=== PATIENT | male | born 1960 | race African-American/Black ===

== ENCOUNTER 2016-09-04 08:17 | Inpatient (IN) ==
[2016-09-04] MEDS ORDERED: ASPIRIN PO STA (10:11)
[2016-09-04] MEDS ORDERED: NITROGLYCERIN TOP ONE (10:13)
[2016-09-04 10:22] LABS: MANUAL DIFF NEEDED? NO
[2016-09-04 10:26] LABS: BASO% 0.3 % (0.0-0.8); EOS# 0.01 X1000 (0.0-0.7); EOS% 0.1 % (0.0-10.0); HEMATOCRIT 38.4 % (42.0-52.0); HEMOGLOBIN 12.7 g/dL (14.0-18.0); LYMPH# 0.68 X1000 (1.2-3.4); LYMPH% 7.9 % (20.5-51.1); MCH 27.3 PG (27-31); MCHC 33.1 g/dL (33-37); MCV 82.4 FL (81-99); MONO# 1.12 X1000 (0.11-0.59); MONO% 12.9 % (1.7-9.3); MPV 12.2 FL (7.4-10.4); NEUT% 78.8 % (42.2-75.2); PLT 174 X1000 (130-400); RBC 4.66 XMIL (4.7-6.1)
[2016-09-04 10:35] LABS: INR 0.96; PTT 26.3 Seconds (22.0-36.0)
--- NOTE | 2016-09-04 10:35 | PROVIDER DOCUMENTATION ---
HPI-Chest Pain - General Chief Complaint: General Adult Stated Complaint: FATIGUE/SWEATS Time Seen by Provider: 09/04/16 09:47 Source: patient Allergies/Adverse Reactions: Patient Allergies Allergy/AdvReac Type Severity Reaction Status Date / Time No Known Allergies Allergy Verified 07/23/14 04:38 Home Medications: Home Medication List Medication Instructions Recorded Confirmed Last Taken Type Esomeprazole [Nexium] 40 mg PO PRN PRN 09/04/16 09/04/16 Unknown History Lisinopril/Hydrochlorothiazide 1 tab PO DAILY 09/04/16 09/04/16 09/04/16 History [Lisinopril-Hctz 20-25 mg Tab] - History of Present Illness-CP Nature of Presenting Problem: 56yom reports chest pain, SOB, elevated blood pressure since waking today. He denies N/V/hemoptysis/back or abd pain. He admits to drinking two beers and one shot daily and denies smoking. He also denies a significant family history of [place]/CAD under age 50. He denies having a PCP or having prior cardiac workup. Location: reports: central Chest Pain Radiation: reports: no radiation Quality of Pain: reports: aching Severity in ED: mild Onset/Duration: gradual Timing: still present Context/Activities at Onset: reports: none Modifying Factors: improves with: nothing Associated Symptoms: reports: shortness of breath Nitro Today/Relief: no nitro taken today Aspirin Treatment Today: no aspirin today Prior Chest Pain/Cardiac Workup: reports: no prior chest pain, no prior cardiac workup Similar Symptoms Previously?: No Recently Seen Here or By Another Healthcare Provider: No Review of Systems - Adult - REVIEW OF SYSTEMS - ADULT Constitutional: reports: no symptoms reported Eyes: reports: no symptoms reported Ears, Nose, Mouth & Throat: reports: no symptoms reported Cardiovascular: reports: see HPI, chest pain. denies: edema, heart murmur, irregular heart rate, orthopnea, palpitations, poor circulation, PND, syncope Respiratory: reports: see HPI, shortness of breath. denies: chronic cough, cough, dyspnea on exertion, excessive sputum production, hemoptysis, pleurisy, wheezing Gastrointestinal: reports: no symptoms reported Genitourinary: reports: no symptoms reported Musculoskeletal: reports: no symptoms reported Integumentary: reports: no symptoms reported Neurological: reports: no symptoms reported Psychiatric: reports: no symptoms reported Endocrine: reports: no symptoms reported Hematologic/Lymphatic: reports: no symptoms reported Allergic/Immunologic: reports: no symptoms reported All Other Systems: Reviewed and Negative Past History - Adult - PAST MEDICAL HISTORY-ADULT Review of Records: reports: Old Records Reviewed, Nursing Assessment Review, Medications Reviewed, Social history reviewed & non-contributory. - SOCIAL HISTORY Alcohol Use Frequency: every day Number of drinks per typical drinking period:: 3-4 drinks Physical Exam-General - PHYSICAL EXAM-ADULT Initial Vital Signs Reviewed: Yes - CONSTITUTIONAL General Appearance: appears well, alert, no apparent distress - EYES Eyes: PERRL/EOMI, pink conjunctivae - HEAD, EARS, NOSE, MOUTH & THROAT HENMT: normocephalic/atraumatic, moist mucous membranes, normal ENT inspection, TMs normal, pharynx normal - NECK Neck: non-tender, full range of motion, supple - RESPIRATORY Respiratory: chest non-tender, lungs clear, normal breath sounds, no pleuratic chest pain, no respiratory distress, no accessory muscle use - CARDIOVASCULAR Cardiovascular: normal peripheral pulses, regular rate, rhythm, no edema - GASTROINTESTINAL (ABDOMEN) Abdominal Exam: normal bowel sounds, non tender, soft - MUSCULOSKELETAL Back Exam: normal inspection, no CVA tenderness Extremity: normal range of motion, non-tender, normal gait, normal inspection - SKIN Integumentary: normal color, normal turgor, warm/dry - NEUROLOGIC Neurologic: engine lathe tender II-XII nml as tested, grossly normal, no motor/sensory deficits - PSYCHIATRIC Psych/Mental Status: normal mood/affect, normal thought content, normal thought process, oriented x 3 Progress - PLAN OF CARE/RESULTS Progress/Plan/Lab Results: Vital Signs - 8 hr 09/04/16 08:37 09/04/16 09:56 09/04/16 10:39 Temperature 98.8 F Pulse Rate 80 83 74 Respiratory Rate 18 22 17 Blood Pressure 170/99 162/114 161/107 O2 Sat by Pulse Oximetry 100 100 99 09/04/16 11:25 09/04/16 12:21 09/04/16 12:47 Temperature 98.6 F Pulse Rate 108 H 102 H 101 H Respiratory Rate 14 18 20 Blood Pressure 157/101 161/107 161/102 O2 Sat by Pulse Oximetry 99 98 99 09/04/16 13:12 09/04/16 13:59 09/04/16 14:18 Temperature Pulse Rate 106 H 108 H 110 H Respiratory Rate 22 22 18 Blood Pressure 175/108 165/107 170/112 O2 Sat by Pulse Oximetry 98 98 96 Laboratory Results - last 24 hr 09/04/16 09/04/16 09/04/16 08:54 08:54 08:54 WBC 8.65 RBC 4.66 L Hgb 12.7 L Hct 38.4 L MCV 82.4 MCH 27.3 MCHC 33.1 RDW Std Deviation 17.6 H Plt Count 174 MPV 12.2 H Immature Gran % (Auto) 0.0 Neut % (Auto) 78.8 H Lymph % (Auto) 7.9 L [place] % (Auto) 12.9 H Eos % (Auto) 0.1 Baso % (Auto) 0.3 Immature Gran # (Auto) 0.00 Neut # (Auto) 6.81 H Lymph # (Auto) 0.68 L [place] # (Auto) 1.12 H Eos # (Auto) 0.01 Baso # (Auto) 0.03 PT INR PTT (Actin FS) D-Dimer 0.74 H Sodium 138 Potassium 3.7 Chloride 95 L Carbon Dioxide 26 Anion Gap 17 BUN 15 Creatinine 0.9 Estimated GFR/1.73 m2 > 60 BUN/Creatinine Ratio 17 Glucose 133 H Calculated Osmolality 278 Calcium 10.0 Magnesium 1.8 Total Bilirubin 0.54 AST 177 H ALT 183 H Alkaline Phosphatase 87 Creatine Kinase 527 H Creatine Kinase Index 1.0 CK-MB (CK-2) 5.19 H Troponin T Glw-B-Laygrylcpqf Pept Total Protein 8.2 Albumin 4.6 Globulin 3.6 Albumin/Globulin Ratio 1.3 Amylase Lipase 09/04/16 09/04/16 09/04/16 08:54 08:54 08:54 WBC RBC Hgb Hct MCV MCH MCHC RDW Std Deviation Plt Count MPV Immature Gran % (Auto) Neut % (Auto) Lymph % (Auto) [place] % (Auto) Eos % (Auto) Baso % (Auto) Immature Gran # (Auto) Neut # (Auto) Lymph # (Auto) [place] # (Auto) Eos # (Auto) Baso # (Auto) PT 10.0 INR 0.96 PTT (Actin FS) 26.3 D-Dimer Sodium Potassium Chloride Carbon Dioxide Anion Gap BUN Creatinine Estimated GFR/1.73 m2 BUN/Creatinine Ratio Glucose Calculated Osmolality Calcium Magnesium Total Bilirubin AST ALT Alkaline Phosphatase Creatine Kinase Creatine Kinase Index CK-MB (CK-2) Troponin T < 0.010 Scd-D-Tncwwnuddhg Pept < 5 L Total Protein Albumin Globulin Albumin/Globulin Ratio Amylase Lipase 09/04/16 08:54 WBC RBC Hgb Hct MCV MCH MCHC RDW Std Deviation Plt Count MPV Immature Gran % (Auto) Neut % (Auto) Lymph % (Auto) [place] % (Auto) Eos % (Auto) Baso % (Auto) Immature Gran # (Auto) Neut # (Auto) Lymph # (Auto) [place] # (Auto) Eos # (Auto) Baso # (Auto) PT INR PTT (Actin FS) D-Dimer Sodium Potassium Chloride Carbon Dioxide Anion Gap BUN Creatinine Estimated GFR/1.73 m2 BUN/Creatinine Ratio Glucose Calculated Osmolality Calcium Magnesium Total Bilirubin AST ALT Alkaline Phosphatase Creatine Kinase Creatine Kinase Index CK-MB (CK-2) Troponin T Vsg-O-Fybgnfkyfzc Pept Total Protein Albumin Globulin Albumin/Globulin Ratio Amylase 80 Lipase 68 H Orders Category Date Time Status Cardiac Monitoring DIRECTED Care 09/04/16 10:11 Active Oxygen Therapy- ED Nursing DIRECTED Care 09/04/16 10:11 Active Saline Loc NOW Care 09/04/16 10:11 Active ANGIOGRAM/PULMONARY ARTERIES [CT] Stat Exams 09/04/16 12:12 Completed CHEST-2 VIEWS [RAD] Stat Exams 09/04/16 10:11 Completed AMYLASE [CHEM] Stat Lab 09/04/16 08:54 Completed CBC WITH ELECTRONIC DIFF [HEME] Stat Lab 09/04/16 08:54 Completed CK PROFILE [SP CHEM] Stat Lab 09/04/16 08:54 Completed COMPREHENSIVE METABOLIC PANEL [CHEM] Stat Lab 09/04/16 08:54 Completed D-DIMER [CHEM] Stat Lab 09/04/16 08:54 Completed LIPASE [CHEM] Stat Lab 09/04/16 08:54 Completed MAGNESIUM [CHEM] Stat Lab 09/04/16 08:54 Completed PRO B-NATRIURETIC PEPTIDE Stat Lab 09/04/16 08:54 Completed PROTIME WITH INR [COAG] Stat Lab 09/04/16 08:54 Completed PTT [COAG] Stat Lab 09/04/16 08:54 Completed TROPONIN T Stat Lab 09/04/16 08:54 Completed TROPONIN T Stat Lab 09/04/16 13:54 Received Aspirin Med 09/04/16 10:11 Discontinued 325 mg PO STAT STA Enoxaparin 1 mg/kg [Lovenox 1 mg/kg] Med 09/04/16 14:18 Once 1 each SUBQ NOW ONE Metoprolol [Lopressor] Med 09/04/16 12:59 Discontinued 25 mg PO NOW ONE Nitroglycerin Med 09/04/16 10:13 Discontinued 1 inch TOP NOW ONE EKG [EKG] Stat Ther 09/04/16 10:11 Draft EKG [EKG] Stat Ther 09/04/16 12:59 Ordered Result Diagrams: 09/04/16 08:54 09/04/16 08:54 - REASSESSMENT Reassessment #1 Time Reassessed: 13:01 Reassessment Comment: Pt awaiting CTA chest. Diastolic BP 100s, ordered Lopressor/Repeat Cardiacs Reassessment #2 Time Reassessed: 14:18 Status: improving Reassessment Comment: Pt reports CP improved. Spoke with Neeru Altamirano- recommends admit Gregoria - CONSULTS/PCP/HOSPITALIST Notification #1 *Consult/PCP/Hospitalist*: KRISTIAN Altamirano for Dr. Kinney (Hospitalist) Time Discussed: 14:21 Consult Disposition: Admit (telemetry for chest pain rule out.) Departure - Departure Date of Disposition Decision: 09/04/16 Time of Disposition Decision: 14:19 DIAGNOSIS: Chest pain Disposition: ADMITTED INPATIENT 09 Certified Medical Emergency: Emergent Condition: Stable Referrals and Follow-Ups: None,PCP [Primary Care Provider] - - Critical Care Note This patient required my direct & personal management of CC.: No Comments: Patient care supervised by Dr. Chong, who was available on site and made aware of plan for admit for chest pain rule out (he agreed). He did not co-examine the patient. Attestation - Physician/ ANMOL Attestation Patient care was provided by Advanced Practice Provider:: Yes Advanced Practice Provider:: Millie Reyes Advanced Practice Provider documentation review:: The Mid-level provider documentation, treatment plan and medical decision making was reviewed by the physician who agrees with all treatment and medical decision making by the MLP.
[2016-09-04 10:38] LABS: AGAP 17; ALBUMIN 4.6 g/dL (3.5-5.0); ALKALINE PHOSPHATASE 87 U/L (32-122); BUN 15 mg/dL (8-22); CHLORIDE 95 mmol/L (98-107); COSMO 278; GOT 177 U/L (10-34); GPT 183 U/L (10-44); MAGNESIUM 1.8 mg/dL (1.5-2.7); POTASSIUM 3.7 mmol/L (3.5-5.1); SODIUM 138 mmol/L (136-145); TCO2 26 mmol/L (25-35); TOTAL BILIRUBIN 0.54 mg/dL (0.20-1.00); TOTAL PROTEIN 8.2 g/dL (6.3-8.3)
[2016-09-04 10:47] LABS: CK PROFILE 527 U/L (24-204)
--- NOTE | 2016-09-04 10:56 | Diag Imaging Result Doc PS360 ---
EXAM: CHEST-2 VIEWS INDICATION: Chest Pain TECHNIQUE: 2 views COMPARISON: None. FINDINGS: The lungs are grossly clear. There is no discrete pleural fluid collection or pneumothorax. The cardiomediastinal silhouette and central vasculature are grossly unremarkable. IMPRESSION: No evidence of acute pathology by plain radiograph. Electronically signed by Dilip Hernandez 09/04/2016 10:54 AM
[2016-09-04 11:04] LABS: CK-MB 5.19 ng/mL (0.0-5.0)
[2016-09-04 11:25] LABS: AMYLASE 80 U/L (20-200); LIPASE 68 U/L (13-60)
--- NOTE | 2016-09-04 11:57 | EKG Report ---
Test Performed on : 09/04/2016 08:39:51 AM Test Reason : Chest Pain Blood Pressure : / mmHG Vent. Rate : 082 BPM Atrial Rate : 082 BPM P-R Int : 106 ms QRS Dur : 092 ms QT Int : 360 ms P-R-T Axes : -04 000 -52 degrees QTc Int : 420 ms Sinus rhythm. with sinus arrhythmia. with short [place] Inferior infarct , age undetermined Abnormal ECG No previous ECGs available Unconfirmed Result
--- NOTE | 2016-09-04 12:11 | ED EKG INTERP ---
This chart was entered by Robert Story Scribe, acting as scribe for Bryant Chong MD. EKG Interpretation - EKG Time of EKG reading by physician:: 08:39 EKG Read and Signed by:: Bryant Chong EKG Interpretation (*Must complete 3 of following elements*): Abnormal Rate: 82 Rhythm: Sinus rhythm with short RI [place]: normal QRS: normal RI Interval: normal ST Wave: non-specific ST changes This chart was documented by the indicated scribe, (Robert Story, Shireenibe) and accurately reflects the services I performed and decisions made by Castillo alarcon Vincent J., MD, as attested by the provider's signature.
[2016-09-04] MEDS ORDERED: LOPRESSOR PO ONE (12:59)
--- NOTE | 2016-09-04 14:06 | Diag Imaging Result Doc PS360 ---
EXAM: ANGIOGRAM/PULMONARY ARTERIES INDICATION: SOB, CP, elevated Ddimer TECHNIQUE: COMPARISON: None. FINDINGS: There is no evidence of pulmonary embolism. There is no evidence of aortic dissection or aneurysm. There is cardiomegaly. There are several calcified mediastinal lymph nodes indicating prior granulomatous disease. There is no evidence of significant lymphadenopathy, otherwise. There is a tiny calcified granuloma in the medial right upper lobe. The lungs are grossly clear, otherwise. There is no airspace consolidation appreciated. There is no evidence of pneumothorax or pleural fluid collection. Review of the upper abdomen reveals diffuse hepatic steatosis. IMPRESSION: 1.No evidence of pulmonary embolism or other definite acute chest pathology. 2.Incidental diffuse hepatic steatosis. 3.Cardiomegaly. Electronically signed by Dilip Hernandez 09/04/2016 2:04 PM
[2016-09-04] MEDS ORDERED: LOVENOX 1 MG/KG SUBQ ONE (14:18)
[2016-09-04] MEDS ORDERED: LOVENOX SUBQ ONE (14:45)
[2016-09-04] MEDS ORDERED: ZOFRAN IV PRN (15:35)
[2016-09-04] MEDS ORDERED: NITROGLYCERIN SL PRN (15:35)
[2016-09-04] MEDS ORDERED: ATIVAN IV PRN (15:35)
[2016-09-04] MEDS ORDERED: TYLENOL PO PRN (15:35)
[2016-09-04] MEDS ORDERED: NITROGLYCERIN TOP SCH (16:00)
--- NOTE | 2016-09-04 16:17 | HISTORY AND PHYSICAL ---
HISTORY OF PRESENT ILLNESS: This is a 56-year-old black male who states that he was picking up some paper, did a little walking, and between 7 and 8 o'clock, I think, this morning he had several episodes where he just broke out in a sweat and he felt a little bit jittery. He denies true chest pain or any chest pain, or any pain at all, just kind of a little bit of a lightheaded feeling plus a sweat. He had 3 or 4 episodes of that in an hour. He denies any known history of heart disease. I do not know that he has seen doctors very often. He has had surgery on his left hand after apparently a traumatic puncture from glass and then developed some peripheral neuropathy or paresthesias in his finger tips, but he actually had them on both hands and he has had them on both feet. The surgery on his left hand, I think, was to repair sensory nerves and it did not work, by his report. This was done in [place]. He drinks 2-3 beers and a shot every day. 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 He did that in [place] and he also did that here. Denies any illicit drugs. Denies tobacco use or marijuana. He has a history of hypertension. I think he has run out of his medicine, which is an ÓSCAR inhibitor. He has not taken it for a while. SOCIAL HISTORY: I think he is and has family here. He is living with a roommate right now. FAMILY HISTORY: He is not aware of any significant family health issues. REVIEW OF SYSTEMS: Constitutional: He does not report any weight gain or loss. No fever or chills. HEENT: Otherwise, unremarkable. Does not report any change in vision or hearing acuity. Respiratory: Denies any increased work of breathing, dyspnea, or orthopnea. Cardiovascular: No chest pain. He did feel like his heart was racing when he had the diaphoretic episodes. Gastrointestinal and Genitourinary: No gross hematuria or dysuria. No abdominal pain. No change in bowels. Musculoskeletal and Neurologic: Does not report any new acute changes. He does have paresthesias described in the bottoms of his feet and both hands in a symmetrical distribution. It is worse when he wears socks at night. PHYSICAL EXAMINATION: GENERAL: Today in the emergency room, alert and oriented x3. Pleasant. VITAL SIGNS: Temperature was 98.6 degrees, pulse 85, respirations 17, blood pressure 159/108. HEENT: Pupils are equal and round. LUNGS: Clear in all lung fuentes. CARDIOVASCULAR: Regular rhythm and rate, without murmur or S3. ABDOMEN: Soft, nontender, nondistended. VASCULAR: His carotid, femoral, popliteal, and pedal pulses are all 2+ and symmetrical. Good capillary refill. SKIN: Without rashes or lesions. LUNGS: Clear in all lung fuentes anterior and lateral. CARDIOVASCULAR: Regular rhythm and rate. PMI nondisplaced. Good carotid upstroke. Normal S1 and S2. No murmur appreciated. ABDOMEN: Soft. No hepatojugular reflux. No hepatosplenomegaly. EXTREMITIES: Without clubbing, cyanosis, or edema. LABORATORY AND IMAGING: White count 8650, hematocrit 38, platelet count 174,000. Sodium 138, potassium 3.7, chloride 95, bicarbonate 26, BUN 15, creatinine 0.9, blood sugar 133. AST was 177, ALT 183, alkaline phosphatase 87. Troponin less than 0.01. proBNP was less than 5. Amylase 80 and lipase was 68. Albumin 4.6. Prothrombin time 10. PTT was 26. INR was 1.96. Chest x-ray: No evidence of acute pathology. Lungs are grossly clear. No discrete pleural collection or pneumothorax. The cardiomediastinal silhouette and central vasculature are grossly unremarkable. Pulmonary arteriogram was performed. No evidence of pulmonary embolism. Incidental diffuse hepatic steatosis. Cardiomegaly. EKG: Normal sinus rhythm. No ST-segment deviation. Note: His troponin was less than 0.01. CPK was 527 initially. ASSESSMENT AND PLAN: 1. Will admit for atypical chest pain and rule out coronary insufficiency or unstable angina. Will check serial troponin, CPK, and EKG. At this point, I do not see any evidence of ischemia. 2. He has got some paresthesias in his feet and hands. His blood sugar was 133. I think we need to see about a hemoglobin A1c and see what his sugars are doing. It appears that he may be getting the beginnings of peripheral neuropathy and he may have a dysautonomia associated with that, and that may explain his sweating episodes. 3. Hypertension. We will put him back on an ÓSCAR inhibitor. I think that would be appropriate. Note that renal function looks good. Electrolytes look good. 4. He has elevated transaminases. 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 It is mild. On his pulmonary arteriogram today, he did have some hepatic steatosis, so will adult school counselor him about the importance of probably getting off alcohol. It is possible he could go through alcohol withdrawal or even delirium tremens. Will check T4 and TSH, B12 and folate, and serial cardiac enzymes. Put him on normal saline and I think we will run it at 75 mL an hour. Cardiology is involved. I think they have given him some Lovenox. We will put him on lisinopril right now at 10 mg twice a day and we will go ahead and continue his Nexium 40 mg p.o. daily. cc: Simon Kaminski MD
--- NOTE | 2016-09-04 16:49 | EKG Report ---
Test Performed on : 09/04/2016 3:35:17 PM Test Reason : chest pain Blood Pressure : / mmHG Vent. Rate : 085 BPM Atrial Rate : 085 BPM P-R Int : 134 ms QRS Dur : 102 ms QT Int : 360 ms P-R-T Axes : 047 019 050 degrees QTc Int : 428 ms Normal sinus rhythm. Inferior infarct (cited on or before 04-SEP-2016) Abnormal ECG When compared with ECG of 04-SEP-2016 14:45, (Unconfirmed) No significant change was found Confirmed by Fei Stovall MD ([id number]) on 09/06/2016 12:58:52 PM
[2016-09-04] MEDS ORDERED: PRINIVIL PO ONE (19:35)
[2016-09-04] MEDS ORDERED: HYDROCHLOROTHIAZIDE PO ONE (19:35)
[2016-09-04] MEDS: PRILOSEC PO SCH (20:30)
[2016-09-04 20:45] LABS: URINE MICRO REVIEW NEEDED? NO; URINE SOURCE VOIDED
[2016-09-04 20:50] LABS: BILIRUBIN URINE NEGATIVE (NEGATIVE); BLOOD URINE NEGATIVE (NEGATIVE); COLOR YELLOW; GLUCOSE URINE NEGATIVE (NEGATIVE); LEUKOCYTES URINE NEGATIVE (NEGATIVE); NITRITE URINE NEGATIVE (NEGATIVE); PH URINE 6.5; PROTEIN URINE NEGATIVE (NEGATIVE); SP GRAVITY URINE 1.003; TURBIDITY URINE CLEAR (CLEAR); UROBILINOGEN URINE NORMAL (NORMAL)
[2016-09-04] MEDS ORDERED: LOPRESSOR PO SCH (21:00)
[2016-09-04 21:03] LABS: UR AMPHETAMINES QUAL NONE DETECTED (NONE DETECT); UR BARBITUATES QUAL NONE DETECTED (NONE DETECT); UR BENZODIAZEPIN QUAL NONE DETECTED (NONE DETECT); UR CANNABINOIDS QUAL NONE DETECTED (NONE DETECT); UR COCAINE QUAL NONE DETECTED (NONE DETECT); UR METHADONE QUAL NONE DETECTED (NONE DETECT); UR OPIATES QUAL NONE DETECTED (NONE DETECT); UR OXYCODONE QUAL NONE DETECTED (NONE DETECT); UR PCP QUAL NONE DETECTED (NONE DETECT)
[2016-09-04 21:04] LABS: UR EPITHELIAL CELLS <10 /HPF (<10); URINE BACTERIA NEGATIVE /HPF; URINE RBC <10 /HPF (<10); URINE WBC <10 /HPF (<10)
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
--- NOTE | 2016-09-04 22:22 | ECHO REPORT ---
ORDER DATE: 09/04/2016 MEASUREMENTS: Left ventricular end-diastolic diameter 5.2, end-systolic diameter 3.4, posterior wall thickness 1, septal thickness 1.1, left atrium 2.9, aortic root 3.8. SUMMARY: 1. Fair quality study. 2. Aortic valve is trileaflet and opens normally on 2-dimensional images. Mitral valve demonstrates some chordal redundancy just beneath the valve leaflets. Mitral valve functions normally. Tricuspid and pulmonic valves are without structural abnormality with trace tricuspid regurgitation and trace pulmonic insufficiency. Estimated systolic PA pressure by Doppler is 25 mmHg. Aortic root is normal in size. 3. Normal left ventricular dimensions suggested on 2-dimensional images. Estimated left ventricular ejection fraction is approximately 55%. No regional wall motion abnormalities are evident. Doppler suggests grade 1 left ventricular diastolic dysfunction. Left atrium, right atrium, and right ventricle are normal in size with normal right ventricular systolic function. 4. No pericardial effusion. 5. Appearance of inferior vena cava suggests normal central venous pressure. 6. Sinus rhythm during study. CONCLUSIONS: 1. No significant valvular abnormality. 2. Normal left ventricular systolic function. 3. Grade 1 left ventricular diastolic dysfunction suggested. cc: MD Evelia Ball CRNP
[2016-09-05] MEDS: NS 1,000 ML IV SCH ×2 (01:01→08:40)
[2016-09-05] MEDS: HUMULIN R SUBQ SCH ×4 (01:01→15:08)
--- NOTE | 2016-09-05 05:33 | EKG Report ---
Test Performed on : 09/04/2016 10:58:45 PM Test Reason : Re_ordered Blood Pressure : / mmHG Vent. Rate : 068 BPM Atrial Rate : 068 BPM P-R Int : 142 ms QRS Dur : 100 ms QT Int : 426 ms P-R-T Axes : 028 034 013 degrees QTc Int : 452 ms Normal sinus rhythm. with sinus arrhythmia. Normal ECG When compared with ECG of 04-SEP-2016 22:57, (Unconfirmed) No significant change was found Confirmed by Fei Stovall MD ([id number]) on 09/06/2016 12:59:27 PM
[2016-09-05 06:46] LABS: MANUAL DIFF NEEDED? NO
[2016-09-05 06:53] LABS: BASO% 0.5 % (0.0-0.8); EOS# 0.04 X1000 (0.0-0.7); EOS% 0.7 % (0.0-10.0); HEMATOCRIT 37.5 % (42.0-52.0); HEMOGLOBIN 12.2 g/dL (14.0-18.0); IMM GRAN# 0.02 X1000 (0.0-0.04); IMM GRAN% 0.4 % (0.0-0.5); LYMPH# 1.29 X1000 (1.2-3.4); LYMPH% 23.5 % (20.5-51.1); MCH 26.9 PG (27-31); MCHC 32.5 g/dL (33-37); MCV 82.8 FL (81-99); MPV 11.2 FL (7.4-10.4); NEUT% 54.9 % (42.2-75.2); PLT 158 X1000 (130-400); RBC 4.53 XMIL (4.7-6.1)
--- NOTE | 2016-09-05 06:57 | EKG Report ---
Test Performed on : 09/05/2016 05:49:10 AM Test Reason : chest pain Blood Pressure : / mmHG Vent. Rate : 062 BPM Atrial Rate : 062 BPM P-R Int : 130 ms QRS Dur : 102 ms QT Int : 406 ms P-R-T Axes : 046 017 112 degrees QTc Int : 412 ms Normal sinus rhythm. Inferior infarct , age undetermined Abnormal ECG When compared with ECG of 04-SEP-2016 22:58, (Unconfirmed) Inferior infarct is now present T wave inversion now evident in Anterior leads Confirmed by Wilman CARVER, Fei Crockett ([id number]) on 09/06/2016 12:59:46 PM
[2016-09-05 07:06] LABS: INR 0.97; PROTIME 10.2 Seconds (9.2-11.7); PTT 27.3 Seconds (22.0-36.0)
[2016-09-05 07:19] LABS: HEMOGLOBIN A1C 5.9 % (4.8-6.0)
[2016-09-05 07:24] LABS: AGAP 11; ALBUMIN 4.3 g/dL (3.5-5.0); ALKALINE PHOSPHATASE 76 U/L (32-122); BUN 9 mg/dL (8-22); CALCIUM 9.8 mg/dL (8.8-10.2); CHLORIDE 98 mmol/L (98-107); COSMO 275; GOT 103 U/L (10-34); GPT 130 U/L (10-44); HDL 101 mg/dL (35-55); IRON SATURATION 18 %; LDL 131 mg/dL; POTASSIUM 3.8 mmol/L (3.5-5.1); SODIUM 138 mmol/L (136-145); TCO2 29 mmol/L (25-35); TIBC 368 ug/dL; TOTAL IRON 67 ug/dL (53-167); TOTAL PROTEIN 7.6 g/dL (6.3-8.3); TRIGLYCERIDES 115 mg/dL (39-160); UNBOUND IRON 301 ug/dL (112-346); VLDL 23 mg/dL
[2016-09-05] MEDS ORDERED: LOVENOX SUBQ SCH (08:00)
[2016-09-05 08:03] LABS: FREE T4 0.95 ng/dL (0.93-1.70)
[2016-09-05] MEDS: PRILOSEC PO SCH (08:39)
[2016-09-05] MEDS ORDERED: ASPIRIN PO SCH (09:00)
[2016-09-05] MEDS ORDERED: PRINZIDE 10/12.5MG PO SCH (09:00)
--- NOTE | 2016-09-05 09:51 | PROGRESS NOTE ---
DATE: 09/05/2016 SUBJECTIVE: Mr. Loaiza is upset that he was in the shower when they came to get him for his GXT His lab looks good. His EKGs look good. I do not see any evidence of ongoing cardiac ischemia. PHYSICAL EXAMINATION: General: On exam today, awake, alert. Vital Signs: Afebrile, temperature 99 degrees, pulse 77, respirations 18, blood pressure 149/89. Lungs: Clear in all lung fuentes. Cardiovascular Examination: Regular rhythm and rate without murmur or S3. Abdomen: Soft. Skin: Warm and dry. Is and Os: Good urine output. ASSESSMENT/PLAN: 1. Diaphoresis. We will make sure there is no active cardiac ischemia. Plan is for a GXT Lexiscan, I believe, Cardiolite. They did that at 12. He has been eating anything. He is frustrated with that. 2. His blood pressure is 149/89 so appears to be doing better. He did not describe any further diaphoresis. 3. History of alcohol, steatosis noted on his pulmonary angiogram and mild elevation of his liver enzymes suggesting hepatic hepatitis. There is a possibility of delirium tremens. We will see if we can get his test performed. He had an echocardiogram. No significant valvular abnormality. Normal left ventricular function. Grade 1 left ventricular diastolic dysfunction noted. cc: Simon Kaminski MD
[2016-09-05] MEDS ORDERED: LEXISCAN ONE (11:56)
--- NOTE | 2016-09-05 13:40 | Diag Imaging Result Document ---
PROCEDURE NAME: MYOCARDIAL PERF SCAN, STR/REST - 09/05/2016 SUMMARY: The patient was administered 14.3 mCi of technetium-99m sestamibi, after which resting cardiac images were obtained. The patient was subsequently stressed using a Lexiscan protocol. Following the administration of Lexiscan, the heart rate increased from 60 beats per minute to 118 beats per minute while the blood pressure went from 148/111 to 146/96. With Lexiscan, the patient denied chest discomfort. Following the administration of Lexiscan, the patient was administered 39.6 mCi of technetium-99m sestamibi, after which gated stress cardiac images were obtained. Baseline ECG demonstrated sinus rhythm and nonspecific T-wave abnormality. With Lexiscan, baseline nonspecific T-wave abnormality did not change. There were no diagnostic ST-segment shifts. SPECT images were reconstructed in the short, horizontal, vertical axes. Review of these images demonstrated no scintigraphic evidence of inducible myocardial ischemia or prior infarct. Gated images demonstrate calculated left ventricular ejection fraction 57% with symmetrical wall motion/thickening. CONCLUSIONS: 1. Adequate response to Lexiscan. 2. Clinically negative for chest pain. 3. Electrocardiographically there were no diagnostic ST-segment changes following the administration of Lexiscan. 4. Lexiscan sestamibi images negative for Lexiscan induced myocardial ischemia. Normal left ventricular systolic function demonstrated. cc: MD Evelia Ball CRNP
[2016-09-05 14:17] VITALS: BP 144/89
--- NOTE | 2016-09-05 17:39 | DISCHARGE SUMMARY ---
ADMISSION DATE: 09/04/2016 DISCHARGE DATE: 09/05/2016 PATIENT PROFILE: This is a 56-year old, black male. HOSPITAL COURSE: He presented with: He had been picking up some paper and doing some walking. He had an hour of 3 or 4 short-lived diaphoretic episodes which really upset him. He felt like he had some palpitations. Denied any specific chest pain. Enzymes were negative. EKG was unremarkable. He did have a mild elevation of blood sugar, he did admit that he drank pretty regularly, did have mild elevation of transaminases. Admitted to the hospital. Serial cardiac enzymes were unremarkable. Underwent myocardial perfusion scan which was read by Dr. Keegan Singletary, adequate response to Lexiscan, clinically negative chest pain, electrocardiographically there were no ST-segment changes. So unremarkable scan, no sign of ischemia. He wanted go home, anxious to go home, so I did get him prescriptions called in for his medications. MEDICATIONS: He is on lisinopril 20/25, lisinopril/hydrochlorothiazide combination, and I think he wanted some of his Nexium as well. DISCHARGE INSTRUCTIONS: He is to get a primary care, and make sure he gets some followup. cc: Simon Kaminski MD
== END 2016-09-05 17:06 | disposition home or self-care (01) ==
LOC: ED 08:17 → 3N 08:17 → OBSVTOIN 15:15 → 3N 15:18
PROVIDERS: ATTEND Emergency Medicine